=== PATIENT | female | born 1950 | race Caucasian/White ===

== ENCOUNTER 2017-10-22 06:50 | Outpatient (CLI) | payer OTHER ==
[2017-10-28] MEDS ORDERED: ZANTAC150 M3 PO (12:25)
[2017-10-28] MEDS ORDERED: PREVACID30 M1 PO (12:25)
[2017-10-28] MEDS ORDERED: COZAAR50 MG PO (12:25)
[2017-11-02] MEDS ORDERED: PROBIOTIC & AC1 EACH PO (11:25)
[2017-11-02] MEDS ORDERED: PERCOCET 5-3251 EACH PO (11:25)
[2017-11-02] MEDS ORDERED: OMEPRAZOLE20 MG PO (11:25)
== END 2017-10-22 07:07 | disposition home or self-care (01) ==
LOC: LAB 06:50 → RAD 06:50 → LAB 07:07
DX: K57.32 Diverticulitis of large intestine without perforation or abscess without bleeding (principal); R10.32 Left lower quadrant pain

== ENCOUNTER 2018-11-08 05:20 | Day surgery (SDC) | payer OTHER ==
[~2018-11-08 05:20] MED LIST: COZAAR50 MG PO; OMEPRAZOLE20 MG PO; PERCOCET 5-3251 EACH PO; PREVACID30 M1 PO; PROBIOTIC & AC1 EACH PO; ZANTAC150 M3 PO
== END 2018-11-08 10:35 | disposition home or self-care (01) ==
LOC: AMB-ENDOS 05:20
DX: D12.2 Benign neoplasm of ascending colon (principal); K57.30 Diverticulosis of large intestine without perforation or abscess without bleeding